=== PATIENT | male | born 1980 | race Caucasian/White ===

== ENCOUNTER 2018-01-14 16:56 | Emergency (ER) | payer BC, OTHER ==
[~2018-01-14] VITALS: Ht 172.7 cm; Wt 102.1 kg
[~2018-01-14 16:56] MED LIST: ANTIBIOTIC; DVL500TEC; PALI3TAB2
--- OUTSIDE RECORDS SUMMARY | 2018-01-14 17:01 | XMS REPORT ---
Author Author TEVIN KNOTT Organization [facility] Address [address] [place] [address] Care Team Providers Care Expressive Therapist Name Role Phone TEVIN KNOTT Unavailable PROBLEMS Type Condition ICD9-CM Code ILR68-EH Code Onset Dates Condition Status SNOMED Code Problem Alcohol dependence, uncomplicated F10.20 Active 06178796 Problem Bipolar disorder, current episode manic without psychotic features, moderate F31.12 Active 931440072 ALLERGIES No Information SOCIAL HISTORY Never Assessed PLAN OF CARE Activity Details Follow Up prn Reason: VITAL SIGNS MEDICATIONS No Known Medications RESULTS No Results PROCEDURES Procedure Date Ordered Result Body Site Psychotherapy, patient &/family, 45 minutes, established patient June 15, 2016 IMMUNIZATIONS No Known Immunizations MEDICAL (GENERAL) HISTORY Type Description Date Medical History bipolar Surgical History pilonidal cyst excision
--- OUTSIDE RECORDS SUMMARY | 2018-01-14 17:01 | XMS REPORT ---
Author Author DIMA SHARPE [facility] eClinicalWorks Address Unknown Phone Unavailable Care Team Providers Care Mold Dresser Name Role Phone DIMA SHARPE CP Unavailable Allergies No Known Allergies Problems Problem Type Condition ICD-9 Code Onset Dates Condition Status Problem Cellulitis and abscess of unspecified site 682.9 Active Problem Other abnormal blood chemistry 790.6 Active Problem Personal history of noncompliance with medical treatment, presenting hazards to health V15.81 Active Problem Cough 786.2 Active Problem Allergic rhinitis, cause unspecified 477.9 Active Problem Obesity, unspecified 278.00 Active Problem Other and unspecified bipolar disorders 296.89 Active Problem Bipolar I disorder, most recent episode (or current) manic, mild 296.41 Active Problem Counseling on substance use and abuse V65.42 Active Problem Migraine, unspecified without mention of intractable migraine without mention of status migrainosus 346.90 Active Problem Headache 784.0 Active Problem Bipolar I disorder, most recent episode (or current) manic, in full remission 296.46 Active Assessment Dental examination V72.2 Active Problem Abnormal weight gain 783.1 Active Problem Routine general medical examination at health care facility V70.0 Active Problem Bipolar I disorder, most recent episode (or current) depressed, unspecified 296.50 Active Problem Diarrhea 787.91 Active Problem Other and unspecified noninfectious gastroenteritis and colitis 558.9 Active Problem Cellulitis and abscess of leg, except foot 682.6 Active Medications No Known Medications Procedures Procedure Coding System Code Date Billing Notes on claim CPT-4 EC109 September 09, 2014 Results No Known Results Summary Purpose eClinicalWorks Submission
--- OUTSIDE RECORDS SUMMARY | 2018-01-14 17:02 | XMS REPORT ---
Author Author NAUN DE LEÓN Organization [facility] Address [address] [place] [address] Care Team Providers Care Residential Mortgage Manager Name Role Phone NAUN DE LEÓN Unavailable PROBLEMS Type Condition ICD9-CM Code LFM89-RD Code Onset Dates Condition Status SNOMED Code Problem Mixed hyperlipidemia E78.2 Active 955421363 Problem Obesity (BMI 30-39.9) E66.9 Active 723925559 Problem Alcohol dependence, uncomplicated F10.20 Active 90564323 Problem Bipolar disorder, current episode manic without psychotic features, moderate F31.12 Active 439896619 ALLERGIES No Information ENCOUNTERS Encounter Location Date Diagnosis [address] [address] Mar, Mixed hyperlipidemia E78.[address] [address] Mar, Wellness examination Z00.00 [place] [address] [address] Mar, Wellness examination Z00.00 and Obesity (BMI 30-39.9) E66.9 [facility] [address] [id number] Jun, Dental examination Z01.20 [place] [address] [address] [place] [id number] [place] [address] Jun, Bipolar disorder, current episode manic without psychotic features, moderate F31.12 [place] [address] [address] Mar, Acute nasopharyngitis J00 [place] [address] [address] Dec, Seasonal allergic rhinitis due to pollen J30.1 [facility] [address] [address] May, Bipolar disorder, current episode manic without psychotic features, moderate F31.12 and Alcohol dependence, uncomplicated F10.20 [facility] [id number] [place] [id number] May, Dental examination Z01.20 [facility] [address] [place] [id number] [place] [address] Dec, Upper respiratory infection 465.9 [facility] [address] [place] [id number] [place] [address] Nov, [facility] [address] [place] [id number] [place] [address] Nov, Abscess and cellulitis 682.9 [facility] [address] [place] [id number] [place] [id number] Oct, Dental examination V72.2 [facility] [address] [place] [id number] [place] [id number] Sep, Dental examination V72.2 [facility] [address] [place] [id number] [place] [address] Jul, Bipolar I disorder, most recent episode (or current) depressed, unspecified 296.50 [facility] [address] [place] [id number] [place] [address] Jul, [facility] [address] [place] [id number] [place] [address] Jul, [facility] [address] [place] [id number] [place] [address] May, [facility] [address] [place] [id number] [place] [address] May, [facility] [address] [place] [id number] [place] [address] Nov, [facility] [place] [facility] [address] [id number] [place] [address] Nov, [facility] [address] [id number] [place] [address] Jun, [facility] [address] [id number] [place] [address] Jun, [facility] [address] [id number] [place] [address] Dec, [facility] [address] [id number] [place] [address] Dec, [facility] [address] [id number] [place] [address] Nov, [facility] [address] [id number] [place] [address] August, [facility] [address] [id number] [place] [address] August, [facility] [address] [id number] [place] [address] Jun, [facility] [address] [id number] [place] [address] Jun, [facility] [address] [id number] [place] [address] Apr, [facility] [address] [id number] [place] [address] Apr, [facility] [address] [id number] [place] [address] Apr, [facility] [place] [facility] [address] [id number] [place] [address] Apr, [facility] [place] [facility] [address] [id number] [place] [address] Mar, [facility] [address] [id number] [place] [address] Mar, [facility] [place] [facility] [address] [id number] [place] [address] Mar, [facility] [place] [facility] [address] [id number] [place] [address] Mar, [facility] [place] [facility] [address] [id number] [place] [address] Feb, [facility] [place] [facility] [address] [id number] [place] [address] Feb, [facility] [place] [facility] [address] [id number] [place] [address] Jan, [facility] [place] [facility] [address] [id number] [place] Jan, [facility] [place] [facility] [address] [id number] [place] Jan, [facility] [place] [facility] [address] [id number] [place] [address] Jan, [facility] [place] [facility] [address] [id number] [place] [address] 14[address] Nov, [facility] [place] [facility] [address] [id number] [place] [address] Nov, [facility] [place] [facility] [address] [id number] [place] [address]- [address] Nov, [facility] [place] [facility] [address] [id number] [place] [address] Nov, [facility] [place] [facility] [address] [id number] [place] [address] Oct, [facility] [place] [facility] [address] [id number] [place] [address] Sep, [facility] [place] [facility] [address] [id number] [place] [address] Sep, [facility] [place] [facility] [address] [id number] [place] [address]- [address] August, [facility] [address] [id number] [place] [address] August, [facility] [address] [id number] [place] [address] Jul, [facility] [address] [id number] [place] [address]- [address] Jul, [facility] [address] [id number] [place] [address]- [address] Jun, [facility] [address] [id number] [place] [address]- [address] Jun, [facility] [address] [id number] [place] [address]- [address] Jun, [facility] [address] [id number] [place] [address]- [address] May, [facility] [address] [id number] [place] [address] May, [facility] [address] [id number] [place] [address]- [address] Apr, [facility] [address] [id number] [place] [address]- [address] Apr, [facility] [address] [id number] [place] [address]- [address] Apr, [facility] [address] [id number] [place] [address]- [address] Apr, [facility] [place] [facility] [address] [id number] [place] [address]- [address] Apr, [facility] [address] [id number] [place] [address]- [address] Mar, [facility] [address] [id number] [place] [address]- [address] Mar, [facility] [address] [place] [address] Feb, [facility] [address] [address] Feb, [facility] [address], [place] [address] Feb, [facility] [address] [place] [address] Jan, [facility] [address] [place] [address] Feb, [facility] [address], [place] [address] Feb, [facility] [address] [address] Jan, [facility] [address], [place] [address] Jan, IMMUNIZATIONS No Known Immunizations SOCIAL HISTORY Never Assessed REASON FOR VISIT PLAN OF CARE VITAL SIGNS MEDICATIONS Medication Instructions Dosage Frequency Start Date End Date Duration Status Lovastatin 40 mg Orally Once a day 1 tablet with a meal 24h Mar, 90 days Active RESULTS No Results PROCEDURES No Known procedures INSTRUCTIONS MEDICATIONS ADMINISTERED No Known Medications MEDICAL (GENERAL) HISTORY Type Description Date Medical History bipolar Surgical History pilonidal cyst excision
--- OUTSIDE RECORDS SUMMARY | 2018-01-14 17:02 | XMS REPORT ---
Author Author TEVIN KNOTT [facility] eClinicalWorks Address Unknown Phone Unavailable Care Team Providers Care High School Sports Coach Name Role Phone TEVIN KNOTT CP Unavailable Allergies No Known Allergies Problems Problem Type Condition Code Onset Dates Condition Status Problem Cellulitis and abscess of unspecified site 682.9 Active Problem Other abnormal blood chemistry 790.6 Active Problem Personal history of noncompliance with medical treatment, presenting hazards to health V15.81 Active Problem Alcohol dependence, uncomplicated F10.20 Active Problem Obesity, unspecified 278.00 Active Problem Bipolar disorder, current episode manic without psychotic features, moderate F31.12 Active Problem Counseling on substance use and abuse V65.42 Active Problem Migraine, unspecified without mention of intractable migraine without mention of status migrainosus 346.90 Active Problem Cough 786.2 Active Problem Allergic rhinitis, cause unspecified 477.9 Active Assessment Alcohol dependence, uncomplicated F10.20 Active Assessment Bipolar disorder, current episode manic without psychotic features , moderate F31.12 Active Problem Abnormal weight gain 783.1 Active Problem Routine general medical examination at health care facility V70.0 Active Problem Headache 784.0 Active Problem Diarrhea 787.91 Active Problem Other and unspecified noninfectious gastroenteritis and colitis 558.9 Active Problem Cellulitis and abscess of leg, except foot 682.6 Active Medications No Known Medications Procedures Procedure Coding System Code Date Psychotherapy, patient &/family, 45 minutes, established patient CPT-4 56189 May 19, 2015 Results No Known Results Summary Purpose eClinicalWorks Submission
--- OUTSIDE RECORDS SUMMARY | 2018-01-14 17:02 | XMS REPORT ---
Author Author NAUN DE LEÓN Organization [facility] Address [address] [place] [address] Care Team Providers Care Property And Equipment Clerk Name Role Phone NAUN DE LEÓN Unavailable PROBLEMS Type Condition ICD9-CM Code PCJ22-KQ Code Onset Dates Condition Status SNOMED Code Problem Bipolar disorder, current episode manic without psychotic features, moderate F31.12 Active 508405648 Problem Alcohol dependence, uncomplicated F10.20 Active 52044624 ALLERGIES Substance Reaction Event Type Date Status N.K.D.A. Unknown Non Drug Allergy Mar, Unknown SOCIAL HISTORY No smoking Hx information available PLAN OF CARE Activity Details Follow Up prn Reason: VITAL SIGNS Height 68 in 2016-03-26 Weight 218.8 lbs 2016-03-26 Temperature 98.1 degrees Fahrenheit 2016-03-26 Heart Rate 88 bpm 2016-03-26 Respiratory Rate 20 2016-03-26 BMI 33.26 kg/m2 2016-03-26 Blood pressure systolic 138 mmHg 2016-03-26 Blood pressure diastolic 80 mmHg 2016-03-26 MEDICATIONS Medication Instructions Dosage Frequency Start Date End Date Duration Status Lamictal 25 MG Orally Twice a day 3 tablets 12h Active [place] Carbonate 300 mg take 1-2 tablet by Oral route 2 times per day ( ONE Q AM AND 2 Q PM) Oct, Active Invega Sustenna 234 mg/1.5 mL inject 1.5 milliliters (234 mg) by intramuscular route once a month Mar, Active RESULTS No Results PROCEDURES Procedure Date Ordered Related Diagnosis Body Site Office Visit, Est Pt., Level 2 Mar 26, 2016 IMMUNIZATIONS No Known Immunizations
--- OUTSIDE RECORDS SUMMARY | 2018-01-14 17:02 | XMS REPORT ---
Author Author JEN CORONA [facility] eClinicalWorks Address Unknown Phone Unavailable Care Team Providers Care Office Copy Selector Name Role Phone JEN CORONA CP Unavailable Allergies, Adverse Reactions, Alerts Substance Reaction Event Type N.K.D.A. Info Not Available Non Drug Allergy Problems Problem Type Condition Code Onset Dates [...] Allergic rhinitis, cause unspecified 477.9 Active Assessment Seasonal allergic rhinitis due to pollen J30.1 Active Problem Abnormal weight gain 783.1 Active Problem Routine general medical examination at health care facility V70.0 Active Problem Headache 784.0 Active Problem Diarrhea 787.91 Active Problem Other and unspecified noninfectious gastroenteritis and colitis 558.9 Active Problem Cellulitis and abscess of leg, except foot 682.6 Active Medications Medication Code System Code Instructions Start Date End Date Status Dosage Tolu Carbonate [facility] [address]-77 300 mg November 03, 2013 take 1-2 tablet by Oral route 2 times per day ( ONE Q AM AND 2 Q PM) Lamictal [facility] [address]-63 25 MG Orally Twice a day 3 tablets Invega Sustenna [facility] [address]-48 234 mg/1.5 mL Mar 25, 2012 inject 1.5 milliliters (234 mg) by intramuscular route once a month Procedures Procedure Coding System Code Date Office Visit, Est Pt., Level 3 CPT-4 99600 Jan 05, 2016 Vital Signs Date/Time: Jan 05, 2016 Cardiac Monitoring Heart Rate 96 bpm Weight 221.5 lbs Height 68 in BMI 33.68 Index Blood Pressure Diastolic 85 mmHg Blood Pressure Systolic 138 mmHg Results No Known Results Summary Purpose eClinicalWorks Submission
--- OUTSIDE RECORDS SUMMARY | 2018-01-14 17:02 | XMS REPORT ---
Author Author NAUN DE LEÓN Organization [facility] Address [address] [place] [address] Care Team Providers Care Trim Master Operator Name Role Phone NAUN DE LEÓN Unavailable PROBLEMS Type Condition ICD9-CM Code TNO81-RK Code Onset Dates Condition Status SNOMED Code Problem Mixed hyperlipidemia E78.2 Active 621354518 Problem Obesity (BMI 30-39.9) E66.9 Active 686167223 Problem Alcohol dependence, uncomplicated F10.20 Active 76973678 Problem Bipolar disorder, current episode manic without psychotic features, moderate F31.12 Active 252064493 ALLERGIES No Information ENCOUNTERS Encounter Location Date Diagnosis [address] [address] Mar, Mixed hyperlipidemia E78.[address] [address] Mar, Wellness examination Z00.00 [place] [address] [address] Mar, Wellness examination Z00.00 and Obesity (BMI 30-39.9) E66.9 [facility] [address] [id number] Jun, Dental examination Z01.20 [place] [address] [place] [id number] [place] [address]- 9338 Jun, Bipolar disorder, current episode manic without psychotic features, moderate F31.12 [place] [address] [address]- [address] Mar, Acute nasopharyngitis J00 [place] [address] [address]- 119[address] Dec, Seasonal allergic rhinitis due to pollen J30.1 [facility] [address], [place] [address] May, Bipolar disorder, current episode manic without psychotic features, moderate F31.12 and Alcohol dependence, uncomplicated F10.20 [facility] [address] [place] [address] [id number] May, Dental examination Z01.20 [facility] [address] [place] [id number] [place] [address] 73759- 8296 Dec, Upper respiratory infection 465.9 [facility] [address] [place] [id number] [place] [address] 28254- 8526 Nov, [facility] [address] [place] [id number] [place] [address] 10094- 6336 Nov, Abscess and cellulitis 682.9 [facility] [address] [place] [id number] [place] [address] [id number] Oct, Dental examination V72.2 [facility] [address] [place] [id number] [place] [address] [id number] Sep, Dental examination V72.2 [facility] [address] [place] [id number] [place] [address] 34205- 2836 Jul, Bipolar I disorder, most recent episode (or current) depressed, unspecified 296.50 [facility] [address] [place] [id number] [place] [address] 74419- 0054 Jul, [facility] [address] [place] [id number] [place] [address] 06372- 0795 Jul, [facility] [address] [place] [address] [id number] [place] [address] 24566- 7065 May, [facility] [address] [place] [id number] [place] [address] 01611- 0786 May, [facility] [address] [place] [id number] [place] [address] 55044- 2659 Nov, [facility] [place] [facility] [address] [id number] [place] [address] 2540 Nov, [facility] [address] [id number] [place] [address]- 8581 Jun, [facility] [address] [id number] [place] [address]- 1056 Jun, [facility] [address] [id number] [place] [address]- 7419 Dec, [facility] [address] [id number] [place] [address]- 1365 Dec, [facility] [address] [id number] [place] [address]- 7119 Nov, [facility] [address] [id number] [place] [address]- 1747 August, [facility] [address] [id number] [place] [address]- 2726 August, [facility] [address] [id number] [place] [address]- 4578 Jun, [facility] [address] [id number] [place] [address]- 0738 Jun, [facility] [address] [id number] [place] [address]- 2294 Apr, [facility] [address] [id number] [place] [address]- 5577 Apr, [facility] [address] [id number] [place] [address]- 8169 Apr, [facility] [place] [facility] [address] [id number] [place] [address]- 2546 Apr, [facility] [place] [facility] [address] [id number] [place] [address]- 6805 Mar, [facility] [address] [id number] [place] [address]- 6181 Mar, [facility] [place] [facility] [address] [id number] [place] [address]- 1104 Mar, [facility] [place] [facility] [address] [id number] [place] [address]- 8714 Mar, [facility] [place] [facility] [address] [id number] [place] [address]- 3263 Feb, [facility] [place] [facility] [address] [id number] [place] [address]- 4752 Feb, [facility] [place] [facility] [address] [id number] [place] [address] Jan, [facility] [place] [facility] [address] [id number] [place] [address] Jan, [facility] [place] [facility] [address] [id number] [place] [address] Jan, [facility] [place] [facility] [address] [id number] [place] [address]- 8538 Jan, [facility] [place] [facility] [address] [id number] [place] [address]- 9399 Nov, [facility] [place] [facility] [address] [id number] [place] [address]- 9434 Nov, [facility] [place] [facility] [address] [id number] [place] [address]- 3289 Nov, [facility] [place] [facility] [address] [id number] [place] [address]- 6766 Nov, [facility] [place] [facility] [address] [id number] [place] [address]- 1009 Oct, [facility] [place] [facility] [address] [id number] [place] [address]- 0378 Sep, [facility] [place] [facility] [address] [id number] [place] [address]- 3016 Sep, [facility] [place] [facility] [address] [id number] [place] [address]- 2546 August, [facility] [address] [id number] [place] [address]- 6526 August, [facility] [address] [id number] [place] [address]- 2236 Jul, [facility] [address] [id number] [place] [address]- 8436 Jul, [facility] [address] [id number] [place] [address]- 9276 Jun, [facility] [address] [id number] [place] [address]- 1996 Jun, [facility] [address] [id number] [place] [address]- 4186 Jun, [facility] [address] [id number] [place] [address]- 9556 May, [facility] [address] [id number] [place] [address]- 1066 May, [facility] [address] [id number] [place] [address]- 6636 Apr, [facility] [address] [id number] [place] [address]- 5106 Apr, [facility] [address] [id number] [place] [address]- 3216 Apr, [facility] [address] [id number] [place] [address]- 5196 Apr, [facility] [place] [facility] [address] [id number] [place] [address]- 0516 Apr, [facility] [address] [id number] [place] [address]- 2546 Mar, [facility] [address] [id number] [place] [address]- 8886 Mar, [facility] [address], [place] [address]- 6936 Feb, [facility] [address], [place] [address]- 0386 Feb, [facility] [address], [place] [address]- 1532 Feb, [facility] [address], [place] [address]- 1442 Jan, [facility] [address], [place] [address]- 1726 Feb, [facility] [address], [place] [address]- 0986 Feb, [facility] [address], [place] [address]- 2885 Jan, [facility] [address], [place] [address]- 9839 Jan, IMMUNIZATIONS No Known Immunizations SOCIAL HISTORY Never Assessed REASON FOR VISIT Lab (walk-in) PLAN OF CARE VITAL SIGNS MEDICATIONS Unknown Medications RESULTS No Results PROCEDURES Procedure Date Ordered Result Body Site LIPID PANEL Mar 18, 2017 COMPREHEN METABOLIC PANEL Mar 18, 2017 VENIPUNCT, ROUTINE* Mar 18, 2017 INSTRUCTIONS MEDICATIONS ADMINISTERED No Known Medications MEDICAL (GENERAL) HISTORY Type Description Date Medical History bipolar Surgical History pilonidal cyst excision
--- OUTSIDE RECORDS SUMMARY | 2018-01-14 17:02 | XMS REPORT ---
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 Name Role Phone NAUN DE LEÓN Unavailable PROBLEMS Type Condition ICD9-CM Code JJZ00-TQ Code Onset Dates Condition Status SNOMED Code Problem Mixed hyperlipidemia E78.2 Active 811489908 Problem Obesity (BMI 30-39.9) E66.9 Active 142889743 Problem Alcohol dependence, uncomplicated F10.20 Active 63314948 Problem Bipolar disorder, current episode manic without psychotic features, moderate F31.12 Active 077787369 ALLERGIES No Known Allergies ENCOUNTERS Encounter Location Date Diagnosis [place] [id number] [address] Mar, Mixed hyperlipidemia E78.[address] [address]- [address] Mar, Wellness examination Z00.00 [place] [address] [address]- [address]47 Mar, Wellness examination Z00.00 and Obesity (BMI 30-39.9) E66.9 [facility] [address] [id number] Jun, 2016 Dental examination Z01.20 [place] [address] [place] [id number] [place] [address] 9[address]78- 5425 Jun, Bipolar disorder, current episode manic without psychotic features, moderate F31.12 [place] [address] [address]- 9874 Mar, Acute nasopharyngitis J00 [place] [address] [address]- 4295 Dec, Seasonal allergic rhinitis due to pollen J30.1 [facility] [address], [place] [address]- 1220 May, Bipolar disorder, current episode manic without psychotic features, moderate F31.12 and Alcohol dependence, uncomplicated F10.20 [facility] [address] [place] [address] [id number] May, Dental examination Z01.20 [facility] [address] [place] [id number] [place] [address] 07226- 7449 Dec, Upper respiratory infection 465.9 [facility] [address] [place] [id number] [place] [address] 37704- 2491 Nov, [facility] [address] [place] [id number] [place] [address] 94055- 8024 Nov, Abscess and cellulitis 682.9 [facility] [address] [place] [id number] [place] [address] [id number] Oct, Dental examination V72.2 [facility] [address] [place] [id number] [place] [address] [id number] Sep, Dental examination V72.2 [facility] [address] [place] [id number] [place] [address] 98376- 2849 Jul, Bipolar I disorder, most recent episode (or current) depressed, unspecified 296.50 [facility] [address] [place] [address] 17854- 3833 Jul, [facility] [address] [place] [id number] [place] [address] 00409- 7843 Jul, [facility] [address] [place] [address] 65371- 8404 May, [facility] [address] [place] [id number] [place] [address] 57192- 7794 May, [facility] [address] [place] [id number] [place] [address] 34127- 7131 Nov, [facility] [place] [facility] [address] [id number] [place] [address]- 2543 Nov, [facility] [address] [id number] [place] [address]- 3815 Jun, [facility] [address] [id number] [place] [address]- 2546 Jun, [facility] [address] [id number] [place] [address]- 254 Dec, [facility] [address] [id number] [place] [address]- 2548 Dec, [facility] [address] [id number] [place] [address]- 2546 Nov, [facility] [address] [id number] [place] [address]- 3106 August, [facility] [address] [id number] [place] [address]- 2720 August, [facility] [address] [id number] [place] [address]- 8651 Jun, [facility] [address] [id number] [place] [address]- 7455 Jun, [facility] [address] [id number] [place] [address]- 7365 Apr, [facility] [address] [id number] [place] [address]- 2546 Apr, [facility] [place] [facility] [address] [id number] [place] [address]- 2549 Apr, [facility] [place] [facility] [address] [id number] [place] [address]- 2546 Apr, [facility] [address] [id number] [place] [address]- 2546 Mar, [facility] [address] [id number] [place] [address]- 5534 Mar, [facility] [place] [facility] [address] [id number] [place] [address]- 4555 Mar, [facility] [place] [facility] [address] [id number] [place] [address]- 4772 Mar, [facility] [place] [facility] [address] [id number] [place] [address]- 6687 Feb, [facility] [place] [facility] [address] [id number] [place] [address]- 1617 Feb, [facility] [place] [facility] [address] [id number] [place] [address]- 2854 Jan, [facility] [place] [facility] [address] [id number] [place] [address]- 5735 Jan, [facility] [place] [facility] [address] [id number] [place] [address]- 0298 Jan, [facility] [place] [facility] [address] [id number] [place] [address]- 8409 Jan, [facility] [place] [facility] [address] [id number] [place] [address]- 1469 Nov, [facility] [place] [facility] [address] [id number] [place] [address]- 4991 Nov, [facility] [place] [facility] [address] [id number] [place] [address]- 5903 Nov, [facility] [place] [facility] [address] [id number] [place] [address]- 9320 Nov, [facility] [place] [facility] [address] [id number] [place] [address]- 2483 Oct, [facility] [place] [facility] [address] [id number] [place] [address]- 2744 Sep, [facility] [place] [facility] [address] [id number] [place] [address]- 2685 Sep, [facility] [place] [facility] [address] [id number] [place] [address]- 2546 August, [facility] [address] [id number] [place] [address]- 6686 August, [facility] [place] [facility] [address] [id number] [place] [address]- 8486 Jul, [facility] [address] [id number] [place] [address]- 8786 Jul, [facility] [address] [id number] [place] [address]- 8146 Jun, [facility] [address] [id number] [place] [address]- 1036 Jun, [facility] [address] [id number] [place] [address]- 8776 Jun, [facility] [address] [id number] [place] [address]- 2216 May, [facility] [address] [id number] [place] [address]- 0105 May, [facility] [address] [id number] [place] [address]- 5636 Apr, [facility] [address] [id number] [place] [address]- 6586 Apr, [facility] [address] [id number] [place] [address]- 5096 Apr, [facility] [address] [id number] [place] [address]- 0016 Apr, [facility] [place] [facility] [address] [id number] [place] [address]- 3026 Apr, [facility] [address] [id number] [place] [address]- 7606 Mar, [facility] [address] [id number] [place] [address]- 8626 Mar, [facility] [address] [place] [address] [id number] [address]- 8363 Feb, [facility] [address], [place] [address]- 4730 Feb, [facility] [address], [place] [address]- 3204 Feb, [facility] [address], [place] [address]- 7502 Jan, [facility] [address], [place] [address]- 4395 Feb, [facility] [address], [place] [address]- 4757 Feb, [facility] [address], [place] [address]- 4722 Jan, [facility] [address], [place] [address]- 1700 Jan, IMMUNIZATIONS No Known Immunizations SOCIAL HISTORY Never Assessed REASON FOR VISIT work Physical/ wellness exam-Raeann KING PLAN OF CARE Activity Details Follow Up prn Reason: VITAL SIGNS Height 68 in 2017-03-11 Weight 250.2 lbs 2017-03-11 Temperature 98.3 degrees Fahrenheit 2017-03-11 Heart Rate 112 bpm 2017-03-11 Respiratory Rate 18 2017-03-11 BMI 38.04 kg/m2 2017-03-11 Blood pressure systolic 138 mmHg 2017-03-11 Blood pressure diastolic 76 mmHg 2017-03-11 MEDICATIONS Medication Instructions Dosage Frequency Start Date End Date Duration Status Invega Sustenna 234 mg/1.5 mL inject 1.5 milliliters (234 mg) by intramuscular route once a month Mar, Active Baskin Carbonate 300 mg take 1-2 tablet by Oral route 2 times per day ( ONE Q AM AND 2 Q PM) Oct, Active Flonase 50 mcg/actuation 1 sprays by Nasal route 2 times per day in each nostril Nov, Not-Taking Lamictal 25 MG Orally Twice a day 3 tablets 12h Not-Taking RESULTS No Results PROCEDURES No Known procedures INSTRUCTIONS MEDICATIONS ADMINISTERED No Known Medications MEDICAL (GENERAL) HISTORY Type Description Date Medical History bipolar Surgical History pilonidal cyst excision
--- OUTSIDE RECORDS SUMMARY | 2018-01-14 17:03 | XMS REPORT | Continuity of Care Document ---
Author Author [facility] of [facility] of [facility] Address Unknown Phone Unavailable Allergies There is no data. Medications There is no data. Problems Date Dx Coded Attending Type Code Diagnosis Diagnosed By 01/20/2009 MAYDA CHUNG DDS 296.80 BIPOLAR DISORDER NOS 01/20/2009 MAYDA CHUNG DDS 300.00 anxiety 01/20/2009 CRISTI PIERCE PA-C 296.80 BIPOLAR DISORDER NOS 01/20/2009 CRISTI PIERCE PA-C 300.00 anxiety 01/20/2009 296.80 BIPOLAR DISORDER NOS 01/20/2009 300.00 anxiety 01/20/2009 296.80 BIPOLAR DISORDER NOS 01/20/2009 300.00 anxiety 01/20/2009 296.80 BIPOLAR DISORDER NOS 01/20/2009 300.00 anxiety 01/20/2009 296.80 BIPOLAR DISORDER NOS 01/20/2009 300.00 anxiety 01/20/2009 JAMIE PEDROZA DO K 296.80 BIPOLAR DISORDER NOS 01/20/2009 PEDROZA JAMIE CHOU K 300.00 anxiety 01/20/2009 296.80 BIPOLAR DISORDER NOS 01/20/2009 300.00 anxiety 01/20/2009 296.80 BIPOLAR DISORDER NOS 01/20/2009 300.00 anxiety 01/20/2009 BRADLEY MANCILLA APRNIA R 296.80 BIPOLAR DISORDER NOS 01/20/2009 LAURENT GODINEZ ROGER R 300.00 anxiety 01/20/2009 LAURENT GODINEZ ROGER R 296.80 BIPOLAR DISORDER NOS 01/20/2009 LAURENT GODINEZ ROGER R 300.00 anxiety 01/20/2009 TEVIN KNOTT PSYD 296.80 BIPOLAR DISORDER NOS 01/20/2009 TEVIN KNOTT PSYD 300.00 anxiety 05/05/2009 MAYDA CHUNG DDS 685.1 PILONIDAL CYST 05/05/2009 CRISTI PIERCE PA-C 685.1 PILONIDAL CYST 05/05/2009 685.1 PILONIDAL CYST 05/05/2009 685.1 PILONIDAL CYST 05/05/2009 685.1 PILONIDAL CYST 05/05/2009 685.1 PILONIDAL CYST 05/05/2009 JAMIE PEDROZA DO K 685.1 PILONIDAL CYST 05/05/2009 685.1 PILONIDAL CYST 05/05/2009 685.1 PILONIDAL CYST 05/05/2009 BARDLEY MANCILLA APRNIA R 685.1 PILONIDAL CYST 05/05/2009 LAURENT GODINEZ ROGER R 685.1 PILONIDAL CYST 05/05/2009 TEVIN KNOTT PSYD 685.1 PILONIDAL CYST 05/09/2009 MAYDA CHUNG DDS N 685.0 PILONIDAL CYST WITH ABSCESS 05/09/2009 CRISTI PIERCE PA-C 685.0 PILONIDAL CYST WITH ABSCESS 05/09/2009 685.0 PILONIDAL CYST WITH ABSCESS 05/09/2009 685.0 PILONIDAL CYST WITH ABSCESS 05/09/2009 685.0 PILONIDAL CYST WITH ABSCESS 05/09/2009 685.0 PILONIDAL CYST WITH ABSCESS 05/09/2009 JAMIE PEDROZA DO K 685.0 PILONIDAL CYST WITH ABSCESS 05/09/2009 685.0 PILONIDAL CYST WITH ABSCESS 05/09/2009 685.0 PILONIDAL CYST WITH ABSCESS 05/09/2009 BRADLEY MANCILLA APRNIA R 685.0 PILONIDAL CYST WITH ABSCESS 05/09/2009 BRADLEY MANCILLA APRNIA R 685.0 PILONIDAL CYST WITH ABSCESS 05/09/2009 TEVIN KNOTT PSYD 685.0 PILONIDAL CYST WITH ABSCESS 06/15/2009 MAYDA CHUNG DDS N V74.1 SCREENING EXAMINATION FOR PULMONARY TUBERCULOSIS 06/15/2009 CRISTI PIERCE PA-C V74.1 SCREENING EXAMINATION FOR PULMONARY TUBERCULOSIS 06/15/2009 V74.1 SCREENING EXAMINATION FOR PULMONARY TUBERCULOSIS 06/15/2009 V74.1 SCREENING EXAMINATION FOR PULMONARY TUBERCULOSIS 06/15/2009 V74.1 SCREENING EXAMINATION FOR PULMONARY TUBERCULOSIS 06/15/2009 V74.1 SCREENING EXAMINATION FOR PULMONARY TUBERCULOSIS 06/15/2009 YOVANY JAMIE CHOU K V74.1 SCREENING EXAMINATION FOR PULMONARY TUBERCULOSIS 06/15/2009 V74.1 SCREENING EXAMINATION FOR PULMONARY TUBERCULOSIS 06/15/2009 V74.1 SCREENING EXAMINATION FOR PULMONARY TUBERCULOSIS 06/15/2009 ROGER MANCILLA APRN R V74.1 SCREENING EXAMINATION FOR PULMONARY TUBERCULOSIS 06/15/2009 ROGER MANCILLA APRN R V74.1 SCREENING EXAMINATION FOR PULMONARY TUBERCULOSIS 06/15/2009 TEVIN KNOTT PSYD ANN L V74.1 SCREENING EXAMINATION FOR PULMONARY TUBERCULOSIS 06/27/2009 MULAVERNE FALLONS, MAYDA N 305.1 NICOTINE DEPENDENCE 06/27/2009 MAYDA CHUNG DDS N V72.85 Physical Examination 06/27/2009 CRISTI PIERCE PA-C 305.1 NICOTINE DEPENDENCE 06/27/2009 CRISTI PIERCE PA-C V72.85 Physical Examination 06/27/2009 305.1 NICOTINE DEPENDENCE 06/27/2009 V72.85 Physical Examination 06/27/2009 305.1 NICOTINE DEPENDENCE 06/27/2009 V72.85 Physical Examination 06/27/2009 305.1 NICOTINE DEPENDENCE 06/27/2009 V72.85 Physical Examination 06/27/2009 305.1 NICOTINE DEPENDENCE 06/27/2009 V72.85 Physical Examination 06/27/2009 YOVANY CHOUJAMIE K 305.1 NICOTINE DEPENDENCE 06/27/2009 YOVANY CHOUJAMIE K V72.85 Physical Examination 06/27/2009 305.1 NICOTINE DEPENDENCE 06/27/2009 V72.85 PHYSICAL EXAMINATION 06/27/2009 305.1 NICOTINE DEPENDENCE 06/27/2009 V72.85 PHYSICAL EXAMINATION 06/27/2009 ROGER MANCILLA APRN R 305.1 NICOTINE DEPENDENCE 06/27/2009 ROGER MANCILLA APRN R V72.85 PHYSICAL EXAMINATION 06/27/2009 ROGER MANCILLA APRN R 305.1 NICOTINE DEPENDENCE 06/27/2009 BRADLEY MANCILLA APRNIA R V72.85 PHYSICAL EXAMINATION 06/27/2009 TEVIN KNOTT PSYD ANN L 305.1 NICOTINE DEPENDENCE 06/27/2009 TEVIN KNOTT PSYD L V72.85 PHYSICAL EXAMINATION 10/25/2010 MAYDA CHUNG DDS N 296.52 MO BIPOLAR I DEPRESSED MODERATE 10/25/2010 CRISTI PIERCE PA-C 296.52 MO BIPOLAR I DEPRESSED MODERATE 10/25/2010 296.52 MO BIPOLAR I DEPRESSED MODERATE 10/25/2010 296.52 MO BIPOLAR I DEPRESSED MODERATE 10/25/2010 296.52 MO BIPOLAR I DEPRESSED MODERATE 10/25/2010 296.52 MO BIPOLAR I DEPRESSED MODERATE 10/25/2010 JAMIE PEDROZA DO 296.52 MO BIPOLAR I DEPRESSED MODERATE 10/25/2010 296.52 MO BIPOLAR I DEPRESSED MODERATE 10/25/2010 296.52 MO BIPOLAR I DEPRESSED MODERATE 10/25/2010 ROGER MANCILLA APRN R 296.52 MO BIPOLAR I DEPRESSED MODERATE 10/25/2010 ROGER MANCILLA APRN R 296.52 MO BIPOLAR I DEPRESSED MODERATE 10/25/2010 TEVIN KNOTT PSYD 296.52 MO BIPOLAR I DEPRESSED MODERATE 11/07/2010 JULIET THOMPSON, MAYDA N V58.69 LONG-TERM (CURRENT) USE OF OTHER MEDICATIONS 11/07/2010 CRISTI PIERCE PA-C V58.69 LONG-TERM (CURRENT) USE OF OTHER MEDICATIONS 11/07/2010 V58.69 LONG-TERM ( CURRENT) USE OF OTHER MEDICATIONS 11/07/2010 V58.69 LONG-TERM ( CURRENT) USE OF OTHER MEDICATIONS 11/07/2010 V58.69 LONG-TERM ( CURRENT) USE OF OTHER MEDICATIONS 11/07/2010 V58.69 LONG-TERM ( CURRENT) USE OF OTHER MEDICATIONS 11/07/2010 JAMIE PEDROZA DO V58.69 LONG-TERM (CURRENT) USE OF OTHER MEDICATIONS 11/07/2010 V58.69 LONG-TERM ( CURRENT) USE OF OTHER MEDICATIONS 11/07/2010 V58.69 LONG-TERM ( CURRENT) USE OF OTHER MEDICATIONS 11/07/2010 ROGER MANCILLA APRN R V58.69 LONG-TERM (CURRENT) USE OF OTHER MEDICATIONS 11/07/2010 ROGER MANCILLA APRN V58.69 LONG-TERM (CURRENT) USE OF OTHER MEDICATIONS 11/07/2010 TEVIN KNOTT PSYD V58.69 LONG-TERM (CURRENT) USE OF OTHER MEDICATIONS 11/23/2010 MAYDA CHUNG DDS N 296.62 MO BIPOLAR I MIXED MODERATE 11/23/2010 CRISTI PIERCE PA-C 296.62 MO BIPOLAR I MIXED MODERATE 11/23/2010 296.62 MO BIPOLAR I MIXED MODERATE 11/23/2010 296.62 MO BIPOLAR I MIXED MODERATE 11/23/2010 296.62 MO BIPOLAR I MIXED MODERATE 11/23/2010 296.62 MO BIPOLAR I MIXED MODERATE 11/23/2010 JAMIE PEDROZA DO 296.62 MO BIPOLAR I MIXED MODERATE 11/23/2010 296.62 MO BIPOLAR I MIXED MODERATE 11/23/2010 296.62 MO BIPOLAR I MIXED MODERATE 11/23/2010 ROGER MANCILLA APRN R 296.62 MO BIPOLAR I MIXED MODERATE 11/23/2010 ROGER MANCILLA APRN R 296.62 MO BIPOLAR I MIXED MODERATE 11/23/2010 TEVIN KNOTT PSYD 296.62 MO BIPOLAR I MIXED MODERATE 03/29/2011 MAYDA CHUNG DDS 303.90 ALCOHOLISM 03/29/2011 CRISTI PIERCE PA-C 303.90 ALCOHOLISM 03/29/2011 303.90 ALCOHOLISM 03/29/2011 303.90 ALCOHOLISM 03/29/2011 303.90 ALCOHOLISM 03/29/2011 303.90 ALCOHOLISM 03/29/2011 JAMIE PEDROZA DO 303.90 ALCOHOLISM 03/29/2011 303.90 ALCOHOLISM 03/29/2011 303.90 ALCOHOLISM 03/29/2011 ROGER MANCILLA APRN R 303.90 ALCOHOLISM 03/29/2011 ROGER MANCILLA APRN R 303.90 ALCOHOLISM 03/29/2011 TEVIN KNOTT PSYD 303.90 ALCOHOLISM 04/09/2011 MAYDA CHUNG DDS N 278.00 OBESITY UNSPECIFIED 04/09/2011 CRISTI PIERCE PA-C 278.00 OBESITY UNSPECIFIED 04/09/2011 278.00 OBESITY UNSPECIFIED 04/09/2011 278.00 OBESITY UNSPECIFIED 04/09/2011 278.00 OBESITY UNSPECIFIED 04/09/2011 278.00 OBESITY UNSPECIFIED 04/09/2011 JAMIE PEDROZA DO 278.00 OBESITY UNSPECIFIED 04/09/2011 278.00 OBESITY UNSPECIFIED 04/09/2011 278.00 OBESITY UNSPECIFIED 04/09/2011 ROGER MANCILLA APRN R 278.00 OBESITY UNSPECIFIED 04/09/2011 ROGER MANCILLA APRN R 278.00 OBESITY UNSPECIFIED 04/09/2011 TEVIN KNOTT PSYD 278.00 OBESITY UNSPECIFIED 04/12/2011 JULIET THOMPSON, MAYDA N 296.89 MO BIPOLAR II 04/12/2011 CRISTI PIERCE PA-C 296.89 MO BIPOLAR II 04/12/2011 296.89 MO BIPOLAR II 04/12/2011 296.89 MO BIPOLAR II 04/12/2011 296.89 MO BIPOLAR II 04/12/2011 296.89 MO BIPOLAR II 04/12/2011 JAMIE PEDROZA DO 296.89 MO BIPOLAR II 04/12/2011 296.89 MO BIPOLAR II 04/12/2011 296.89 MO BIPOLAR II 04/12/2011 ROGER MANCILLA APRN 296.89 MO BIPOLAR II 04/12/2011 ROGER MANCILLA APRN 296.89 MO BIPOLAR II 04/12/2011 TEVIN KNOTT PSYD 296.89 MO BIPOLAR II 07/13/2011 MAYDA CHUNG DDS N 296.41 MO BIPOLAR I MANIC MILD 07/13/2011 CRISTI PIERCE PA-C 296.41 MO BIPOLAR I MANIC MILD 07/13/2011 296.41 MO BIPOLAR I MANIC MILD 07/13/2011 296.41 MO BIPOLAR I MANIC MILD 07/13/2011 296.41 MO BIPOLAR I MANIC MILD 07/13/2011 296.41 MO BIPOLAR I MANIC MILD 07/13/2011 JAMIE PEDROZA DO K 296.41 MO BIPOLAR I MANIC MILD 07/13/2011 296.41 MO BIPOLAR I MANIC MILD 07/13/2011 296.41 MO BIPOLAR I MANIC MILD 07/13/2011 ROGER MANCILLA APRN R 296.41 MO BIPOLAR I MANIC MILD 07/13/2011 ROGER MANCILLA APRN R 296.41 MO BIPOLAR I MANIC MILD 07/13/2011 TEVIN KNOTT PSYD 296.41 MO BIPOLAR I MANIC MILD 11/20/2011 MAYDA CHUNG DDS N 682.9 CELLULITIS AND ABSCESS OF UNSPECIFIED SITES 11/20/2011 CRISTI PIERCE PA-C 682.9 CELLULITIS AND ABSCESS OF UNSPECIFIED SITES 11/20/2011 682.9 CELLULITIS AND ABSCESS OF UNSPECIFIED SITES 11/20/2011 682.9 CELLULITIS AND ABSCESS OF UNSPECIFIED SITES 11/20/2011 682.9 CELLULITIS AND ABSCESS OF UNSPECIFIED SITES 11/20/2011 682.9 CELLULITIS AND ABSCESS OF UNSPECIFIED SITES 11/20/2011 JAMIE PEDROZA DO 682.9 CELLULITIS AND ABSCESS OF UNSPECIFIED SITES 11/20/2011 682.9 CELLULITIS AND ABSCESS OF UNSPECIFIED SITES 11/20/2011 682.9 CELLULITIS AND ABSCESS OF UNSPECIFIED SITES 11/20/2011 ROGER MANCILLA APRN R 682.9 CELLULITIS AND ABSCESS OF UNSPECIFIED SITES 11/20/2011 ROGER MANCILLA APRN R 682.9 CELLULITIS AND ABSCESS OF UNSPECIFIED SITES 11/20/2011 TEVIN KNOTT PSYD 682.9 CELLULITIS AND ABSCESS OF UNSPECIFIED SITES 11/28/2011 MAYDA CHUNG DDS 296.50 MO BIPOLAR I DEPRESSED UNSPECIFIED 11/28/2011 CRISTI PIERCE PA-C 296.50 MO BIPOLAR I DEPRESSED UNSPECIFIED 11/28/2011 296.50 MO BIPOLAR I DEPRESSED UNSPECIFIED 11/28/2011 296.50 MO BIPOLAR I DEPRESSED UNSPECIFIED 11/28/2011 296.50 MO BIPOLAR I DEPRESSED UNSPECIFIED 11/28/2011 296.50 MO BIPOLAR I DEPRESSED UNSPECIFIED 11/28/2011 JAMIE PEDROZA DO 296.50 MO BIPOLAR I DEPRESSED UNSPECIFIED 11/28/2011 296.50 MO BIPOLAR I DEPRESSED UNSPECIFIED 11/28/2011 296.50 MO BIPOLAR I DEPRESSED UNSPECIFIED 11/28/2011 ROGER MANCILLA APRN R 296.50 MO BIPOLAR I DEPRESSED UNSPECIFIED 11/28/2011 ROGER MANCILLA APRN R 296.50 MO BIPOLAR I DEPRESSED UNSPECIFIED 11/28/2011 TEVIN KNOTT PSYD 296.50 MO BIPOLAR I DEPRESSED UNSPECIFIED 01/29/2012 MAYDA CHUNG DDS 296.46 MO BIPOLAR I MANIC IN FULL REMISSION 01/29/2012 CRISTI PIERCE PA-C 296.46 MO BIPOLAR I MANIC IN FULL REMISSION 01/29/2012 296.46 MO BIPOLAR I MANIC IN FULL REMISSION 01/29/2012 296.46 MO BIPOLAR I MANIC IN FULL REMISSION 01/29/2012 296.46 MO BIPOLAR I MANIC IN FULL REMISSION 01/29/2012 296.46 MO BIPOLAR I MANIC IN FULL REMISSION 01/29/2012 YOVANY CHOUJAMIE 296.46 MO BIPOLAR I MANIC IN FULL REMISSION 01/29/2012 296.46 MO BIPOLAR I MANIC IN FULL REMISSION 01/29/2012 296.46 MO BIPOLAR I MANIC IN FULL REMISSION 01/29/2012 ROGER MANCILLA APRN R 296.46 MO BIPOLAR I MANIC IN FULL REMISSION 01/29/2012 ROGER MANCILLA APRN R 296.46 MO BIPOLAR I MANIC IN FULL REMISSION 01/29/2012 TEVIN KNOTT PSYD 296.46 MO BIPOLAR I MANIC IN FULL REMISSION 03/25/2012 MAYDA CHUNG DDS N 783.1 ABNORMAL WEIGHT GAIN 03/25/2012 MAYDA CHUNG DDS N V70.0 ROUTINE GENERAL MEDICAL EXAMINATION AT A HEALTH CARE FACILITY 03/25/2012 CRISTI PIERCE PA-C 783.1 ABNORMAL WEIGHT GAIN 03/25/2012 CRISTI PIERCE PA-C V70.0 ROUTINE GENERAL MEDICAL EXAMINATION AT A HEALTH CARE FACILITY 03/25/2012 783.1 ABNORMAL WEIGHT GAIN 03/25/2012 V70.0 ROUTINE GENERAL MEDICAL EXAMINATION AT A HEALTH CARE FACILITY 03/25/2012 783.1 ABNORMAL WEIGHT GAIN 03/25/2012 V70.0 ROUTINE GENERAL MEDICAL EXAMINATION AT A HEALTH CARE FACILITY 03/25/2012 783.1 ABNORMAL WEIGHT GAIN 03/25/2012 V70.0 ROUTINE GENERAL MEDICAL EXAMINATION AT A HEALTH CARE FACILITY 03/25/2012 783.1 ABNORMAL WEIGHT GAIN 03/25/2012 V70.0 ROUTINE GENERAL MEDICAL EXAMINATION AT A HEALTH CARE FACILITY 03/25/2012 783.1 ABNORMAL WEIGHT GAIN 03/25/2012 V70.0 ROUTINE GENERAL MEDICAL EXAMINATION AT A HEALTH CARE FACILITY 03/25/2012 783.1 ABNORMAL WEIGHT GAIN 03/25/2012 V70.0 ROUTINE GENERAL MEDICAL EXAMINATION AT A HEALTH CARE FACILITY 03/25/2012 ROGER MANCILLA APRN R 783.1 ABNORMAL WEIGHT GAIN 03/25/2012 ROGER MANCILLA APRN R V70.0 ROUTINE GENERAL MEDICAL EXAMINATION AT A HEALTH CARE FACILITY 03/25/2012 ROGER MANCILLA APRN R 783.1 ABNORMAL WEIGHT GAIN 03/25/2012 ROGER MANCILLA APRN V70.0 ROUTINE GENERAL MEDICAL EXAMINATION AT A HEALTH CARE FACILITY 03/25/2012 TEVIN KNOTT PSYD 783.1 ABNORMAL WEIGHT GAIN 03/25/2012 TEVIN KNOTT PSYD V70.0 ROUTINE GENERAL MEDICAL EXAMINATION AT A HEALTH CARE FACILITY 04/13/2012 JULIET FALLONS, MAYDA N 790.6 OTHER ABNORMAL BLOOD CHEMISTRY 04/13/2012 CRISTI PIERCE PA-C 790.6 OTHER ABNORMAL BLOOD CHEMISTRY 04/13/2012 790.6 OTHER ABNORMAL BLOOD CHEMISTRY 04/13/2012 790.6 OTHER ABNORMAL BLOOD CHEMISTRY 04/13/2012 790.6 OTHER ABNORMAL BLOOD CHEMISTRY 04/13/2012 790.6 OTHER ABNORMAL BLOOD CHEMISTRY 04/13/2012 790.6 OTHER ABNORMAL BLOOD CHEMISTRY 04/13/2012 790.6 OTHER ABNORMAL BLOOD CHEMISTRY 04/13/2012 ROGER MANCILLA APRN R 790.6 OTHER ABNORMAL BLOOD CHEMISTRY 04/13/2012 ROGER MANCILLA APRN R 790.6 OTHER ABNORMAL BLOOD CHEMISTRY 04/13/2012 TEVIN KNOTT PSYD 790.6 OTHER ABNORMAL BLOOD CHEMISTRY 06/23/2012 558.9 GASTROENTERITIS 06/23/2012 558.9 GASTROENTERITIS 06/23/2012 558.9 GASTROENTERITIS 06/23/2012 558.9 GASTROENTERITIS 06/23/2012 558.9 GASTROENTERITIS 06/23/2012 558.9 GASTROENTERITIS 06/23/2012 ROGER MANCILLA APRN R 558.9 GASTROENTERITIS 06/23/2012 ROGER MANCILLA APRN R 558.9 GASTROENTERITIS 06/23/2012 TEVIN KNOTT PSYD 558.9 GASTROENTERITIS 09/02/2012 784.0 HEADACHE 09/02/2012 784.0 HEADACHE 09/02/2012 784.0 HEADACHE 09/02/2012 784.0 HEADACHE 09/02/2012 ROGER MANCILLA APRN R 784.0 HEADACHE 09/02/2012 ROGER MANCILLA APRN R 784.0 HEADACHE 09/02/2012 TEVIN KNOTT PSYD 784.0 HEADACHE 11/10/2012 346.90 MIGRAINE UNSPECIFIED WITHOUT MENTION OF INTRACTABLE MIGRAINE WITHOUT MENTION OF STATUS MIGRAINOSUS 11/10/2012 477.9 ALLERGIC RHINITIS CAUSE UNSPECIFIED 11/10/2012 V65.42 COUNSELING - SMOKING CESSATION 11/10/2012 346.90 MIGRAINE UNSPECIFIED WITHOUT MENTION OF INTRACTABLE MIGRAINE WITHOUT MENTION OF STATUS MIGRAINOSUS 11/10/2012 477.9 ALLERGIC RHINITIS CAUSE UNSPECIFIED 11/10/2012 V65.42 COUNSELING - SMOKING CESSATION 11/10/2012 ROGER MANCILLA APRN R 346.90 MIGRAINE UNSPECIFIED WITHOUT MENTION OF INTRACTABLE MIGRAINE WITHOUT MENTION OF STATUS MIGRAINOSUS 11/10/2012 ROGER MANCILLA APRN R 477.9 ALLERGIC RHINITIS CAUSE UNSPECIFIED 11/10/2012 ROEGR MANCILLA APRN R V65.42 COUNSELING - SMOKING CESSATION 11/10/2012 ROGER MANCILLA APRN R 346.90 MIGRAINE UNSPECIFIED WITHOUT MENTION OF INTRACTABLE MIGRAINE WITHOUT MENTION OF STATUS MIGRAINOSUS 11/10/2012 ROGER MANCILLA APRN R 477.9 ALLERGIC RHINITIS CAUSE UNSPECIFIED 11/10/2012 ROGER MANCILLA APRN R V65.42 COUNSELING - SMOKING CESSATION 11/10/2012 TEVIN KNOTT PSYD 346.90 MIGRAINE UNSPECIFIED WITHOUT MENTION OF INTRACTABLE MIGRAINE WITHOUT MENTION OF STATUS MIGRAINOSUS 11/10/2012 TEVIN KNOTT PSYD 477.9 ALLERGIC RHINITIS CAUSE UNSPECIFIED 11/10/2012 TEVIN KNOTT PSYD V65.42 COUNSELING - SMOKING CESSATION 12/15/2012 V15.81 PERSONAL HISTORY OF NONCOMPLIANCE WITH MEDICAL TREATMENT PRESENTING HAZARDS TO HEALTH 12/15/2012 V15.81 PERSONAL HISTORY OF NONCOMPLIANCE WITH MEDICAL TREATMENT PRESENTING HAZARDS TO HEALTH 12/15/2012 ROGER MANCILLA APRN R V15.81 PERSONAL HISTORY OF NONCOMPLIANCE WITH MEDICAL TREATMENT PRESENTING HAZARDS TO HEALTH 12/15/2012 ROGER MANCILLA APRN R V15.81 PERSONAL HISTORY OF NONCOMPLIANCE WITH MEDICAL TREATMENT PRESENTING HAZARDS TO HEALTH 12/15/2012 TEVIN KNOTT PSYD L V15.81 PERSONAL HISTORY OF NONCOMPLIANCE WITH MEDICAL TREATMENT PRESENTING HAZARDS TO HEALTH 06/19/2013 ROGER MANCILLA APRN R 682.6 CELLULITIS AND ABSCESS OF LEG EXCEPT FOOT 06/19/2013 ROGER MANCILLA APRN R 787.91 DIARRHEA 06/19/2013 ROGER MANCILLA APRN R 682.6 CELLULITIS AND ABSCESS OF LEG EXCEPT FOOT 06/19/2013 ROGER MANCILLA APRN R 787.91 DIARRHEA 06/19/2013 TEVIN KNOTT PSYD L 682.6 CELLULITIS AND ABSCESS OF LEG EXCEPT FOOT 06/19/2013 TEVIN KNOTT PSYD L 787.91 DIARRHEA 05/12/2014 ROGER MANCILLA APRN R 786.2 COUGH 05/12/2014 TEVIN KNOTT PSYD L 786.2 COUGH Procedures Code Description [place] [address] ROUTINE VENIPUNCTURE 01/29/2012 93351 CBC 01/29/2012 29409 LIVER PANEL (LFT) 01/29/2012 04640 VALPROIC ACID / DEPAKOTE 01/30/2012 07931 ROUTINE VENIPUNCTURE 03/25/2012 54282 CBC 03/25/2012 53280 CMP 03/25/2012 94599 LIPID PANEL 03/25/2012 0594671 GFR CALC (RESULT ONLY) 03/25/2012 71067 VIT B 12 03/26/2012 00515 FOLATE 03/26/2012 99162 TSH 03/26/2012 83395 VITAMIN D 25-HYDROXY (D2,D3 , TOTAL) 03/26/2012 03039 ROUTINE VENIPUNCTURE 04/16/2012 IRGROUP IRON GROUP (Iron,TIBC, Ferritin) 04/16/2012 30637 CMP 04/16/2012 7838040 GFR CALC (RESULT ONLY) 04/16/2012 87040 CPK 04/17/2012 22396 IRON SERUM 04/17/2012 98487 IRON BNDNG CAP 04/17/2012 25537 FERRITIN 04/17/2012 82554 HEPATITIS PROFILE 04/17/2012 86043 PSYTX PT&/FAMILY 45 MINUTES 06/25/2012 92498 PSYTX PT&/FAMILY 30 MINUTES 09/05/2012 09189 PSYTX PT&/FAMILY 30 MINUTES 12/17/2012 21677 PSYTX PT&/FAMILY 45 MINUTES 07/20/2014 Results Test Result Range LIPID PANEL - 03/18/17 08:08 CHOLESTEROL, TOTAL 198 mg/dL <200 HDL CHOLESTEROL 22 mg/dL >40 TRIGLYCERIDES 355 mg/dL <150 LDL-CHOLESTEROL 125 mg/dL (calc) NRG CHOL/HDLC RATIO 9.0 (calc) <5.0 NON HDL CHOLESTEROL 176 mg/dL (calc) <130 Encounters ACCT No. Visit Date/Time Discharge Status Pt. Type Provider Facility Loc./Unit Complaint [id number] 07/20/2014 14:54:00 07/20/2014 23:59:59 CLS Outpatient TEVIN KNOTT PSYD [id number] 05/12/2014 14:43:00 05/12/2014 23:59:59 CLS Outpatient ROGER MANCILLA APRN [id number] 06/19/2013 14:17:00 06/19/2013 23:59:59 CLS Outpatient ROGER MANCILLA APRN [id number] 06/24/2012 14:55:00 06/24/2012 23:59:59 CLS Outpatient [id number] 06/23/2012 13:19:00 06/23/2012 23:59:59 CLS Outpatient [id number] 04/16/2012 11:52:00 04/16/2012 23:59:59 CLS Outpatient CRISTI PIERCE PA-C [id number] 04/11/2012 14:09:00 04/11/2012 23:59:59 CLS Outpatient MAYDA CHUNG DDS [id number] 01/29/2012 10:20:00 01/29/2012 23:59:59 CLS Outpatient JAMIE PEDROZA DO [id number] 12/17/2012 08:07:00 Document Registration [id number] 12/15/2012 17:24:00 Document Registration [id number] 09/05/2012 07:45:00 Document Registration [id number] 09/02/2012 18:39:00 Document Registration [id number] 03/18/2017 08:00:00 03/18/2017 23:59:59 CLS Outpatient NAUN DE LEÓN MD [facility] [id number] 03/18/2017 08:00:00 Document Registration
[2018-01-14] MEDS ORDERED: CEPH500T PO (18:25)
--- NOTE | 2018-01-14 18:25 | ED Integumentary General ---
General Chief Complaint: Upper Extremity Stated Complaint: L ARM RASH Source: patient Exam Limitations: no limitations History of Present Illness Date Seen by Provider: Jan 14, 2018 Time Seen by Provider: 18:09 Initial Comments Patient presents to ER by private conveyance with chief complaint that he's having some spreading cellulitis on his left arm. His never had this before. He went to his primary care provider's office saw nurse practitioner and they started him with a Rocephin shot and Keflex twice a day 500 mg. He was told at the rash spread today he should go straight to the ER to have it checked out. He is not having any fevers chills weakness nausea vomiting diarrhea. He does not have diabetes or any other immunocompromise. He has bipolar disorder for which she takes two meds. He smokes about 2 packs per day and drinks about a sixpack a day. Allergies and Home Medications Allergies Coded Allergies: No Known Allergies (Unverified Allergy, Mild, 05/09/09) Patient Home Medication List Home Medication List Reviewed: Yes Review of Systems Review of Systems Constitutional: No chills, No diaphoresis, No fever EENTM: No ear discharge, No hearing loss, No ear pain Respiratory: No cough, No dyspnea on exertion Cardiovascular: No chest pain, No edema Gastrointestinal: No abdominal pain, No constipation, No diarrhea Genitourinary: No discharge, No dysuria Past Eswnkld-Ewxcph-Xwfidx Hx Patient Social History Alcohol Use: Regular Use Alcohol Beverage of Choice: Beer Recreational Drug Use: No Smoking Status: Current Everyday Smoker Type Used: Cigarettes (2 ppd) Recent Foreign Travel: No Contact w/Someone Who Travel: No Past Medical History Reproductive Disorders: No Physical Exam Vital Signs Capillary Refill : General Appearance: WD/WN, no apparent distress HEENT: PERRL/EOMI, pharynx normal Neck: non-tender, full range of motion, normal inspection Cardiovascular: normal peripheral pulses, regular rate, rhythm, no edema Respiratory: chest non-tender, lungs clear, normal breath sounds, no respiratory distress, no accessory muscle use Gastrointestinal: normal bowel sounds, non tender, soft Neurologic/Psychiatric: alert, normal mood/affect, oriented x 3 Skin: other (blanchable erythema with warmth on the left anterior biceps) Progress/Results/Core Measures Progress Progress Note : Time: 18:23 Progress Note His disease progression is well within the normal course for some under just started antibiotic this morning. Regarding increase his Keflex to 4 times a day and sent a prescription to the [facility] for him. We have discussed appropriate expectations and he is going to follow up with PCP as needed. Departure Impression Primary Impression: Cellulitis Qualified Codes: L03.114 - Cellulitis of left upper limb Disposition: HOME, SELF-CARE Condition: Stable Departure-Patient Inst. Decision time for Depature: 18:24 Patient Instructions: Cellulitis (Skin Infection), Adult (DC) Add. Discharge Instructions: Expect improvement in 2-3 days. Continue taking the Keflex 4 times a day. If he started to have fevers above 102.5 or nausea vomiting or other worrisome symptoms follow-up with her primary care doctor or you may return to the ER after hours. All discharge instructions reviewed with patient and/or family. Voiced understanding. Scripts Cephalexin (Cephalexin) 500 Mg Tablet 500 MG PO QID for 10 Days, #20 TAB 0 Refills Prov: HENRRY TALLEY 01/14/18 Copy Copies To 1: JAMIE PEDROZA DO HENRRY TALLEY Jan 14, 2018 18:25
[2018-01-14 18:38] VITALS: BP 112/81
== END 2018-01-14 18:38 | disposition home or self-care (01) ==
LOC: EDUNIT# 16:56 → ER 16:57
DX: L03.114 Cellulitis of left upper limb (principal); F17.210 Nicotine dependence, cigarettes, uncomplicated
CPT/HCPCS: 99282

== ENCOUNTER → 2018-03-28 | Outpatient (CLI) | payer BC ==
[~2018-03-28] MED LIST changes: +CEPH500T PO
--- NOTE | 2018-03-28 08:56 | Diagnostic Imaging Report ---
INDICATION: Pain in the knee and calf, left leg TECHNIQUE: Grayscale with color-flow and Doppler waveform evaluation of the left lower extremity deep venous system. CORRELATION STUDY: None FINDINGS: Color and grayscale sonographic images demonstrate no intraluminal defect within the visualized portion of the common femoral, superficial femoral and/or popliteal veins to suggest thrombus formation. These vessels demonstrate normal response to compression and augmentation. Partially duplicated femoral vein of the thigh not excluded. No soft tissue fluid collection. IMPRESSION: 1. Negative for deep venous thrombosis of the left leg. Dictated by: Dictated on workstation # [id number]
== END ==
LOC: RAD 08:12
PROVIDERS: ATTEND Nurse Practitioner Family
DX: M79.662 Pain in left lower leg (principal)

== ENCOUNTER 2019-04-24 15:04 | Outpatient (CLI) | payer BC | END 2019-04-24 15:35 | disposition home or self-care (01) | LOC: SLEEP 15:04 | PROVIDERS: ATTEND Family Medicine | DX: G47.33 Obstructive sleep apnea (adult) (pediatric) (principal); G47.00 Insomnia, unspecified ==

== ENCOUNTER 2022-03-29 02:00 | Emergency (ER) | payer BC ==
[~2022-03-29] VITALS: Ht 172.7 cm; Wt 111.1 kg
[2022-03-29] MEDS ORDERED: LIDOCAINE 1% INJ 20 ML VIAL ONE (02:30)
[2022-03-29] MEDS ORDERED: RX-TRIMETH/SULFA. 160-800 MG (BACTRIM DS) TAB PPK#2 PO STA (02:33)
[2022-03-29] MEDS ORDERED: METR-145 PO (02:37)
[2022-03-29] MEDS ORDERED: KETO10TA PO (02:37)
[2022-03-29] MEDS ORDERED: TRM50T PO (02:37)
[2022-03-29] MEDS ORDERED: SULF1TAB38 PO (02:37)
--- NOTE | 2022-03-29 02:37 | ED Integumentary General ---
General Chief Complaint: Skin/Wound Problems Stated Complaint: CYST Source: patient History of Present Illness Date Seen by Provider: Mar 29, 2022 Time Seen by Provider: 02:23 Allergies and Home Medications Allergies Coded Allergies: No Known Allergies (Unverified Allergy, Mild, 05/09/09) Patient Home Medication List Cephalexin (Cephalexin) 500 Mg Tablet, 500 MG PO QID Prescribed by: HENRRY TALLEY on 01/14/18 182 Divalproex Sodium (Depakote Tab) 500 Mg Tablet., (Reported) Entered as Reported by: KYRA MCBRIDE on 05/09/09 142 Ketorolac Tromethamine (Ketorolac Tromethamine) 10 Mg Tablet, 10 MG PO Q6H Prescribed by: ELIZABETH PAYAN on 03/29/22 023 Metronidazole (Metronidazole) 500 Mg Tablet, 500 MG PO QID Prescribed by: ELIZABETH PAYAN on 03/29/22 023 Paliperidone (Invega) 3 Mg Tab.osm.24, (Reported) Entered as Reported by: KYRA MCBRIDE on 05/09/09 142 Sulfamethoxazole/Trimethoprim (Bactrim Ds Tablet) 1 Each Tablet, 1 EACH PO BID Prescribed by: ELIZABETH PAYAN on 03/29/22236 Tramadol HCl (Tramadol HCl) 50 Mg Tablet, 50 MG PO Q6H PRN for PAIN Prescribed by: ELIZABETH PAYAN on 03/29/22236 [Antibiotic] , (Reported) Entered as Reported by: KYRA MCBRIDE on 05/09/09 142 Past [id number]-Ghqmiu-[id number] Hx Past Medical History Surgeries: Yes (DENTAL) Respiratory: No Cardiac: No Neurological: No Reproductive Disorders: No Sexually Transmitted Disease: No Genitourinary: No Gastrointestinal: No Musculoskeletal: No Endocrine: No HEENT: No Cancer: No Psychosocial: Yes Bipolar Integumentary: No Blood Disorders: No Physical Exam Vital Signs Vital Signs - First Documented 03/29/22 02:10 Temp 36.2 Pulse 102 Resp 14 B/P (MAP) 141/83 (102) Pulse Ox 96 O2 Delivery Room Air Capillary Refill : Progress/Results/Core Measures Results/Orders My Orders Orders - ELIZABETH PAYAN DO Lidocaine 1% Inj 20 Ml (Xylocaine 1% Inj (03/29/22 02:30) Lidocaine 1% Inj 20 Ml (Xylocaine 1% Inj (03/29/22 02:45) Wound Culture (03/29/22 02:33) Wound Dressing-Ed (03/29/22 02:33) Rx-Trimeth/Sulfameth Ds Tab (Rx-Bactrim/ (03/29/22 02:33) Metronidazole Tablet (Flagyl Tablet) (03/29/22 02:45) Vital Signs/I&O 03/29/22 02:10 Temp 36.2 Pulse 102 Resp 14 B/P (MAP) 141/83 (102) Pulse Ox 96 O2 Delivery Room Air Departure Impression Primary Impression: Pilonidal cyst with abscess Disposition: HOME, SELF-CARE Condition: Stable Departure-Patient Inst. Decision time for Depature: 03:00 Referrals: ESTEFANI TELLES MD (PCP/Family) Primary Care Physician Patient Instructions: Abscess Incision and Drainage ED, Pilonidal Cyst (DC) Add. Discharge Instructions: LEAVE PACKING IN PLACE YOU MAY CHANGE THE DRESSING DAILY FOLLOW UP WITH DR. MCKENNA, SURGEON, FOR FURTHER CARE--CALL IN THE MORNING TO SCHEDULE AN APPOINTMENT All discharge instructions reviewed with patient and/or family. Voiced understanding. Scripts Ketorolac Tromethamine (Ketorolac Tromethamine) 10 Mg Tablet 10 MG PO Q6H for Pain, #15 TAB Prov: ELIZABETH PAYAN DO 03/29/22 Tramadol HCl (Tramadol HCl) 50 Mg Tablet 50 MG PO Q6H PRN for PAIN for 3 Days, #15 TAB 0 Refills Prov: ELIZABETH PAYAN DO 03/29/22 Metronidazole (Metronidazole) 500 Mg Tablet 500 MG PO QID, #40 TAB Prov: ELIZABETH PAYAN DO 03/29/22 Sulfamethoxazole/Trimethoprim (Bactrim Ds Tablet) 1 Each Tablet 1 EACH PO BID, #20 TAB Prov: ELIZABETH PAYAN DO 03/29/22 ELIZABETH PAYAN DO Mar 29, 2022 02:37
[2022-03-29] MEDS ORDERED: LIDOCAINE 1% INJ 20 ML VIAL IJ ONE (02:45)
[2022-03-29] MEDS ORDERED: metroNIDAZOLE 500 MG (FLAGYL) TAB PO ONE (02:45)
[2022-03-29 03:20] VITALS: BP 146/76
== END 2022-03-29 03:20 | disposition home or self-care (01) ==
LOC: EDUNIT# 02:00 → ER 02:05
DX: L05.01 Pilonidal cyst with abscess (principal)
CPT/HCPCS: 87070; 87077; 87205; 99283

== ENCOUNTER 2022-04-05 08:53 | Outpatient (CLI) | payer BC ==
[~2022-04-05] VITALS: Ht 172.7 cm; Wt 111.1 kg
[~2022-04-05 08:53] MED LIST changes: +KETO10TA PO; +METR-145 PO; +SULF1TAB38 PO; +TRM50T PO
[2022-04-05] MEDS ORDERED: [UNRECOGNIZED DRUG - OTHER] (11:54)
== END 2022-04-05 12:01 | disposition home or self-care (01) ==
LOC: PREOP 08:53
PROVIDERS: ATTEND Surgery
DX: Z01.818 Encounter for other preprocedural examination (principal)

== ENCOUNTER → 2022-05-17 | Outpatient (CLI) | payer BC ==
[~2022-05-17] MED LIST changes: +[UNRECOGNIZED DRUG - OTHER]
== END | disposition home or self-care (01) ==
LOC: PREOP 05:30
PROVIDERS: ATTEND Surgery
DX: Z01.818 Encounter for other preprocedural examination (principal); L05.91 Pilonidal cyst without abscess

== ENCOUNTER 2022-08-13 05:30 | Outpatient (CLI) | payer BC ==
[~2022-08-13] VITALS: Ht 172.7 cm; Wt 112.5 kg
[2022-08-15] MEDS ORDERED: ACHD5005 PO (13:47)
== END 2022-08-13 13:25 | disposition home or self-care (01) ==
LOC: PREOP 05:30
PROVIDERS: ATTEND Surgery
DX: Z01.818 Encounter for other preprocedural examination (principal)

== ENCOUNTER 2022-08-15 11:26 | Day surgery (SDC) | payer BC ==
[~2022-08-15] VITALS: Ht 172.7 cm; Wt 112.5 kg
[2022-08-15] VITALS (15 sets, daily range): BP systolic 107–141; BP diastolic 61–89
[2022-08-15] MEDS ORDERED: BUP/EPI 0.5% 1:200,000 (SENSORCAINE) 30 ML VIAL ONE (11:37)
--- NOTE | 2022-08-15 11:56 | Progress Note-Pre Operative ---
Pre-Operative Progress Note Date of Available H&P: August 09, 2022 Date H&P Reviewed: August 15, 2022 Time H&P Reviewed: 11:54 History & Physical: H&P Reviewed, Patient Examed, No changes noted Pre-Operative Diagnosis: pilonidal cyst JUAN MILLS DO August 15, 2022 11:56
[2022-08-15] MEDS ORDERED: LACTATED RINGERS 1,000 ML IV PRN (12:00)
[2022-08-15] MEDS ORDERED: ceFAZolin INJECTION 2,000 MG in NS (IVPB) 50 ML IV ONE (12:00)
[2022-08-15] MEDS ORDERED: proPOfol 200 MG/20 ML (DIPRIVAN) VIAL IV ONE ×2 (12:46→13:39)
[2022-08-15] MEDS ORDERED: SEVOFLURANE (ULTANE) 15 ML INHAL SOLN ONE ×2 (12:46→13:39)
[2022-08-15] MEDS ORDERED: fentaNYL INJ 100 MCG/2 ML AMP ONE (12:46)
[2022-08-15] MEDS ORDERED: LIDOCAINE PF 2% 5 ML (XYLOCAINE) VIAL ONE (12:46)
[2022-08-15] MEDS ORDERED: ONDANSETRON 4 MG/2 ML (SDV) Z0FRAN ONE (12:46)
[2022-08-15] MEDS ORDERED: MIDAZOLAM 2 MG/2 ML (VERSED) VIAL ONE (12:47)
[2022-08-15] MEDS ORDERED: ROCURONIUM 50 MG/5 ML (ZEMURON) VIAL IV ONE (12:51)
[2022-08-15] MEDS ORDERED: HYDROmorphone 2 MG/ML VIAL (DILAUDID) ONE (13:33)
[2022-08-15] MEDS ORDERED: KETOROLAC 30 MG/ML VIAL ONE (13:39)
[2022-08-15] MEDS ORDERED: SUGAMMADEX 500 MG/5 ML VIAL (BRIDION) IV ONE (13:40)
--- NOTE | 2022-08-15 13:46 | Progress Note-Post Operative ---
Post-Operative Progess Note Surgeon (s)/Dietitian Teaching (s) Surgeon JUAN MILLS DO Dietitian Teaching: TIANNA Brasher student Pre-Operative Diagnosis pilonidal cyst Post-Operative Diagnosis same Procedure & Operative Findings Date of Procedure 08/15/22 Procedure Performed/Findings Excision of pilonidal cyst with iodoform packing. PROCEDURE NOTE: After informed consent was obtained, the patient was brought to the operating room. He was intubated and placed on table in a prone position. He was sterilely prepped and draped in a normal fashion. The lidocaine was used to infiltrate the skin around this pilonidal cyst. I went around the small opening in the gluteal crease and up on the middle to the where the previous abscess cavity was. I elected to do an elliptical incision going around the previous abscess superiorly and towards the midline pilonidal cyst, then made an incision with #15 blade, carried down through the skin into subcutaneous tissue. This measured 4.8 x 2.9 x 2cm deep. It was deepened through the subcutaneous tissue with Bovie electrocautery, taking this down all the way to the sacrum, removing all of the abscess cavity and the midline pilonidal cyst, passing this off the table. Hemostasis was obtained using Bovie electrocautery. Copiously irrigated with normal saline and then packed with a half inch iodoform packing. The area was cleaned and dried. A pressure dressing was placed. The patient was transferred to recovery room in stable condition. Sponge, instrument and needle count correct at the end of the case. Anesthesia Type GET Estimated Blood Loss Estimated blood loss (mL): 20ml Specimens/Packing Specimens Removed pilonidal cyst and tissue JUAN MILLS DO August 15, 2022 13:46
[2022-08-15] MEDS ORDERED: ACHD5005 PO (13:47)
--- NOTE | 2022-08-15 13:48 | Discharge Inst-Surgical ---
Discharge Inst-Surgical Depart Medication/Instructions New, Converted or Re-Newed RX: Transmitted to Pharmacy Patient Instructions Follow up Appt: Make appointment for 1 week. [phone] Instructions: No lifting greater than 20 pounds. No strenuous activity. May shower in 24 hours, no tub bath or soaking. Use incentive spirometer at home as directed. No Smoking Skin/Wound Care: May remove bandages in Saturday in the am. You need to change the packing daily Symptoms to Report: Appetite Changes, Extremity Discoloration, Numbness/Tingling, Swelling Increased, Bleeding Excessive, Eyesight Changes, Pain Increased, Urine Color Change, Constipation(Persistent), Fever over 101 degree F, Pain/Pressure in chest, Urinating Difficulty, Cough Up/Vomit Blood, Heart Beat Irreg/Pounding, Pain/Pressure in jaw, Cramps in feet or legs, Lightheadedness, Pain/Pressure in shoulder, Diarrhea(Persistent), Memory Changes Suddenly, Questions/Concerns, Weight gain consecutive days, Dizziness/Fainting, Nausea/Vomiting, Shortness of Breath, Weight gain over 2 pounds If questions or concerns contact your physician Or seek help at emergency department. Activity Activity as Tolerated: Yes Activity Instructions: Avoid Stress to Incision Driving Instructions: No Driving/Refer to Dr. Modi Discharge Diet: No Restrictions Diet After 24 Hours: Clear Liquid if Nauseous If Any Problems/Questions/Issu: Contact Your Physician, Go to Emergency Room Skin/Wound Care Infection Signs and Symptoms: Increased Redness, Foul Odor of Wound, Increased Drainage, Skin Itchy or Has a Rash, Increased Swelling, Temperature Above 101 F Bathing Instructions: JUAN Sanford DO August 15, 2022 13:48
[2022-08-15] MEDS ORDERED: BUP/EPI 0.5% 1:200,000 (SENSORCAINE) 30 ML VIAL INJ ONE (13:57)
[2022-08-15] MEDS ORDERED: ONDANSETRON 4 MG/2 ML (SDV) Z0FRAN IVP PRN (14:00)
[2022-08-15] MEDS ORDERED: HYDROmorphone 2 MG/ML VIAL (DILAUDID) IV ONE (14:00)
== END 2022-08-15 15:45 ==
LOC: SDC 11:26
PROVIDERS: ATTEND Surgery
DX: L05.01 Pilonidal cyst with abscess (principal); F17.210 Nicotine dependence, cigarettes, uncomplicated
CPT/HCPCS: 87081; 88304